=== PATIENT | male | born 1970 | race Native Hawaiian/Other Pacific Islander ===

== ENCOUNTER 2020-09-08 15:21 | Outpatient (CLI) | payer OTHER | END 2020-09-08 20:49 | disposition home or self-care (01) | LOC: RESP 15:21 | PROVIDERS: ATTEND Student in an Organized Health Care Education/Training Program | DX: Z12.11 Encounter for screening for malignant neoplasm of colon (principal); Z80.0 Family history of malignant neoplasm of digestive organs; I10 Essential (primary) hypertension; R56.9 Unspecified convulsions ==